=== PATIENT | male | born 1955 | race Caucasian/White ===

== ENCOUNTER 2024-04-10 09:52 | Emergency (ER) | payer MEDICARE, SELFPAY ==
[2024-04-10 10:16] VITALS: BP 98/61; PULSE 68; RESP 18; TEMP 36.7; O2SAT 97; BMI 26.9
[2024-04-10 10:28] VITALS: BP 108/60; PULSE 68; O2SAT 96
--- NOTE | 2024-04-10 10:29 | CT_ITS ---
WS: [id number] CT ABDOMEN AND PELVIS WITH CONTRAST HISTORY: hematuria TECHNIQUE: Imaging performed of the abdomen and pelvis with IV contrast. Single phase imaging of the abdomen. Coronal and sagittal reformats are submitted. All CT scans at [facility] use at [address] one of these dose optimization techniques: automated exposure control; mA and/or kV adjustment per patient size (includes targeted exams where dose is matched to clinical indication); or iterative re construction. IV CONTRAST: Omnipaque 350; 100 mL IV. Oral contrast: No DLP: 543.13 mGy.cm COMPARISON: None available. Lower thorax: Slight elevation LEFT hemidiaphragm. LEFT basilar atelectasis. Heart is normal size. No hiatal hernia. Liver/biliary system: Normal size with no intrahepatic dilatation. Gallbladder: Normal. No gallstones or wall thickening. No pericholecystic fluid. Pancreas: Normal size pancreas and pancreatic duct. No adjacent inflammation. Spleen: Normal size spleen. No mass or infarct. Adrenal glands: Normal. Right kidney: Low normal size kidney. No obstruction and no solid mass. No perinephric stranding. Left kidney: Low normal size kidney. No perinephric stranding or obstruction. No mass. Aorta: Atherosclerosis aorta with ectasia. Small amount of plaque at the origin of the celiac axis an d SMA. Component of stenosis is likely. Lymphadenopathy: None. Free fluid: None. GI tract: Normally distended stomach and small bowel. No colon obstruction. Normal appendix. Abdominal wall: Unremarkable abdominal wall. No hernia. Pelvis: Hayden catheter present in an abnormal urinary bladder. There is marked bladder wall thickenin g with mild enhancement. Bladder wall measures up to 1.3 cm. Air in the urinary bladder is probably f rom the recent catheter placement. Bones: Unremarkable. CT/CT abdomen pelvis w con* [id number] IMPRESSION: 1. Markedly abnormal urinary bladder. There is marked, near diffuse wall thick ening with mild enhancement. Wall thickening measures up to 1.3 cm. Recommend c ystoscopy. Differential includes extensive uroepithelial neoplasm or severe cys titis. 2. Hayden catheter in place. 3. No renal obstruction. 4. Atherosclerosis abdominal aorta and mesenteric arteries.
--- NOTE | 2024-04-10 10:30 | ED_ITS ---
HPI - Male Genitourinary 2 General: Chief complaint: Urogenital-Male Stated complaint: blood in urine Time Seen by Provider: 04/10/24 10:25 Source: patient Mode of arrival: ambulatory Limitations: no limitations History of Present Illness: 68-year-old male who states that he has been having hematuria since last night he states this is just a slight amount of blood today states he is passing some blood clots he had some slight lower abdominal pain rated 3 out of 10 he states he still been able to urinate. Denies any history of hematuria in the past. Denies fever Associated symptoms: Reports hematuria; Deny dysuria, nausea or vomiting Review of Systems 2 Const: Denies: fever(s), chills, body aches or change in appetite ENMT: Denies: throat pain or dental pain Card: Denies: chest pain Resp: Denies: dyspnea GI: Reports: abdominal pain; Denies: nausea, vomiting or diarrhea : Reports: hematuria; Denies: dysuria Musc: Denies: neck pain or back pain Skin/Breast: Denies: rash Neuro: Denies: headache(s) Physical Exam 2 Const: COMMON NORMALS: no acute distress, patient oriented x3 and healthy appearing HENMT: COMMON NORMALS: normocephalic and atraumatic HEAD & SCALP: n ormocephalic and atraumatic Eye: COMMON NORMALS: conjunctivae normal CONJUNCTIVA: Yes conjunctivae normal Neck/C-Spine: COMMON NORMALS: full ROM and supple Chest: COMMONS NORMALS: normal inspection of the chest Resp: COMMON NORMALS: normal respiratory effort Cardio: COMMON NORMALS: regular rate, regular rhythm and No murmurs present (Cardio) RATE: regular rate RHYTHM: regular rhythm GI: COMMON NORMALS: Normal to inspection, nondistended, normoactive bowel sounds present, Soft to palpation, non-tender and no masses PALPATION: Yes Soft to palpation Extremity: COMMON NORMALS: normal to inspection and full ROM Neuro: COMMON NORMALS: patient oriented x3, moves all extremities and no focal motor deficits Psych: COMMON NORMALS: mental status grossly normal, Normal thought process present and cooperative THOUGHT PROCESS: Normal thought process present Skin: COMMON NORMALS: no rashes or lesions noted and no wounds GENERAL SKIN EXAM: no rashes or lesions noted Course 2 Vital Signs: Vital signs: Vital Signs Temperature 98.1 F 04/10/24 10:16 Pulse Rate 64 04/10/24 13:00 Respiratory Rate 16 04/10/24 13:00 Blood Pressure 118/72 04/10/24 13:00 Pulse Oximetry 97 04/10/24 13:00 Oxygen Delivery Me thod Room Air 04/10/24 13:00 MDM - Male Medical Decision Making Patient presents here with hematuria did place a Hayden was able to flush it clear CT does show bladder irregularities we will start patient on antibiotics we will leave Hayden in place we will get him follow-up with urology as he likely needs a cystoscope I did inform him of this. He is return if worsening Medical Records I reviewed the patient's medical records. Lab Data I reviewed the patient's lab results. 04/10/24 10:42 04/10/24 10:42 Radiology Impressions Abdomen/Pelvis CT 04/10/24 10:29 IMPRESSION: 1. Markedly abnormal urinary bladder. There is marked, near diffuse wall thickening with mild enhancement. Wall thickening measures up to 1.3 cm. Recommend cystoscopy. Differential includes extensive uroepithelial neoplasm or severe cystitis. 2. Hayden catheter in place. 3. No renal obstruction. 4. Atherosclerosis abdominal aorta and mesenteric arteries. Laboratory Results WBC 8.04 10^3/uL (3.29-11.43) 04/10/24 10:42 RBC 4.91 10^6/uL (3.85-5.65) 04/10/24 10:42 Hgb 14.00 g/dL (11.27-16.99) 04/10/24 10:42 Hct 43.7 % (37-53) 04/10/24 10:42 MCV 89.0 fl (82-101) 04/10/24 10:42 MCH 28.5 pg (27-33) 04/10/24 10:42 MCHC 32.0 g/dL (30-55) 04/10/24 10:42 RDW 14.2 % (12.1-15.1) 04/10/24 10:42 Plt Count 271 10^3/cmm (157-399) 04/10/24 10:42 MPV 10.8 fL (7.4-10.4) H 04/10/24 10:42 Neut % (Auto) 46.8 % 04/10/24 10:42 Lymph % (Auto) 28.2 % 04/10/24 10:42 Caroline % (Auto) 14.9 % 04/10/24 10:42 Eos % (Auto) 9.0 % 04/10/24 10:42 Baso % (Auto) 0.9 % 04/10/24 10:42 Neut # (Auto) 3.76 10^3/uL (1.8-7.7) 04/10/24 10:42 Lymph # (Auto) 2.3 10^3/uL (0.8-4.8) 04/10/24 10:42 Caroline # (Auto) 1.2 10^3/uL (0.2-0.9) H 04/10/24 10:42 Eos # (Auto) 0.7 10^3/uL (0.0-0.8) 04/10/24 10:42 Baso # (Auto) 0.1 10^3/uL (0.0-0.1) 04/10/24 10:42 Nucleated RBC % (auto) 0 % 04/10/24 10:42 Nucleated RBCs # 0.0 /100WBC 04/10/24 10:42 PT 14.90 SECONDS (12.1-14.9) 04/10/24 10:42 INR 1.13 (0.8-1.2) 04/10/24 10:42 Sodium 138 mmol/L (136-145) 04/10/24 10:42 Potassium 4.6 mmol/L (3.5-5.1) 04/10/24 10:42 Chloride 106 mmol/L (98-107) 04/10/24 10:42 Carbon Dioxide 22 mmol/L (22-29) 04/10/24 10:42 Anion Gap 14.6 (5-19) 04/10/24 10:42 BUN 14 mg/dL (8-23) 04/10/24 10:42 Creatinine 1.4 mg/dL (0.7-1.2) H 04/10/24 10:42 GFR Calculation 50.7 mL/min (90-130) L 04/10/24 10:42 Glucose 80 mg/dL (65-115) 04/10/24 10:42 Calculated Osmolality 285 mOsm/kg (285-295) 04/10/24 10:42 Calcium 8.4 mg/dL (8.5-10.5) L 04/10/24 10:42 Total Bilirubin 0.3 mg/dL (0.15-1.2) 04/10/24 10:42 AST 19 U/L (0-40) 04/10/24 10:42 ALT 27 U/L (0-41) 04/10/24 10:42 Alkaline Phosphatase 77 U/L (40-130) 04/10/24 10:42 Total Protein 6.9 g/dL (6.6-8.7) 04/10/24 10:42 Albumin 4.2 g/dL (3.5-5.2) 04/10/24 10:42 Globulin 2.7 g/dL (1.3-4.6) 04/10/24 10:42 Urine Color Red (Yellow) A 04/10/24 10:41 Urine Appearance Cloudy (CLEAR) A 04/10/24 10:41 Urine pH 7 (5-7) 04/10/24 10:41 Ur Specific Dittmer 1.010 (1.005-1.030) 04/10/24 10:41 Urine Protein Not tested (Negative) 04/10/24 10:41 Urine Glucose (UA) Norm (Normal) 04/10/24 10:41 Urine Ketones 1+ (Negative) H 04/10/24 10:41 Urine Blood 3+ (Negative) H 04/10/24 10:41 Urine Nitrate Not tested (Negative) A 04/10/24 10:41 Urine Bilirubin Not tested (Negative) 04/10/24 10:41 Urine Urobilinogen Not tested mg/dL (Negative) A 04/10/24 10:41 Ur Leukocyte Esterase Not tested (Negative) A 04/10/24 10:41 Urine RBC Too numerous to cnt /hpf (0-2) H 04/10/24 10:41 Urine WBC None /hpf (0-5) 04/10/24 10:41 Ur Squamous Epith Cells None /hpf (0-5) 04/10/24 10:41 Amorphous Sediment Not Reportable 04/10/24 10:41 Urine Bacteria Trace /hpf (NONE) 04/10/24 10:41 Urine Mucus Trace /hpf 04/10/24 10:41 All radiology interpretation(s) finalized by discharge Discharge Plan Discharge Patient Disposition: Home Clinical Impression: Hematuria Qualifiers: Hematuria type: unspecified type Qualified Code(s): R31.9 - Hematuria, unspecified Condition: Stable Prescriptions: New cephalexin 500 mg capsule 500 mg PO TID 7 Days Qty: 21 0RF No Action clopidogrel 75 mg Tablet 75 mg PO DAILY Aspir-81 81 mg Tablet,Delayed Release (Dr/Ec) 81 mg PO DAILY metoprolol tartrate 25 mg Tablet 12.5 mg PO BID Discharge Orders: Discharge ED (Routine); Ordered 04/10/24 Ordered By: Mp Morales Discharge Diet: Advance as tolerated Discharge Activity: Resume usual activity Patient Instructions: Hematuria (ED) Coding Level of Care Code ED Architectural Sales Consultant for Viji Hernandez
[2024-04-10 10:55] LABS: Basophils # 0.1 10^3/uL (0.0-0.1); Basophils % 0.9 %; Eosinophils # 0.7 10^3/uL (0.0-0.8); Hematocrit 43.7 % (37-53); Lymphocytes # 2.3 10^3/uL (0.8-4.8); Lymphocytes % 28.2 %; Mean Corpuscular Hemoglobin 28.5 pg (27-33); Mean Platelet Volume 10.8 fL (7.4-10.4); Monocytes # 1.2 10^3/uL (0.2-0.9); Monocytes % 14.9 %; Neutrophils # 3.76 10^3/uL (1.8-7.7); Neutrophils % 46.8 %; Nucleated Red Blood Cells % 0 %; Platelet Count 271 10^3/cmm (157-399); Red Blood Count 4.91 10^6/uL (3.85-5.65); Red Cell Distribution Width 14.2 % (12.1-15.1); White Blood Count 8.04 10^3/uL (3.29-11.43)
[2024-04-10 11:08] LABS: INR 1.13 (0.8-1.2)
[2024-04-10 11:16] LABS: Alanine Aminotransferase 27 U/L (0-41); Albumin Level 4.2 g/dL (3.5-5.2); Alkaline Phosphatase 77 U/L (40-130); Anion Gap 14.6 (5-19); Aspartate Amino Transferase 19 U/L (0-40); Blood Urea Nitrogen 14 mg/dL (8-23); Calcium 8.4 mg/dL (8.5-10.5); Carbon Dioxide 22 mmol/L (22-29); Chloride 106 mmol/L (98-107); Globulin 2.7 g/dL (1.3-4.6); Glomerular Filtration Rate 50.7 mL/min (90-130); Glucose 80 mg/dL (65-115); Osmolality Calculated 285 mOsm/kg (285-295); Potassium 4.6 mmol/L (3.5-5.1); Sodium 138 mmol/L (136-145); Total Bilirubin 0.3 mg/dL (0.15-1.2); Total Protein 6.9 g/dL (6.6-8.7)
[2024-04-10 11:17] LABS: Creatinine Clr Calc Pharmacy 48.6673
[2024-04-10 11:22] LABS: Blood Urine 3+ (Negative); Glucose Urine UA Norm (Normal); Ketones Urine 1+ (Negative); Protein Urine Not Tested (Negative); Urine Appearance Cloudy (CLEAR); Urine Color Red (Yellow); pH Urine 7 (5-7)
[2024-04-10 11:25] LABS: Add Urine Microscopic? YES; Bacteria Urine TRACE /hpf; Bilirubin Urine Not Tested (Negative); Leukocyte Esterase Urine Not Tested (Negative); Mucus Urine TRACE /hpf; Nitrate Urine Not Tested (Negative); RBC Urine TOO NUMEROUS TO CNT /hpf (0-2); Urobilinogen Urine Not Tested mg/dL (Negative)
[2024-04-10 11:26] LABS: Add Urine Culture? Yes
[2024-04-10] MEDS: iohexol 350 mg/mL 500 mL Btl (per mL) IV (11:59)
[2024-04-10 12:40] VITALS: BP 110/62; PULSE 59; RESP 16; O2SAT 98
[2024-04-10 13:00] VITALS: BP 118/72; PULSE 64; RESP 16; O2SAT 97
[2024-04-10] MEDS: cefTRIAXone 1,000 mg SDV 1000 MG IVP (13:14)
[2024-04-10 13:36] VITALS: BP 116/73; PULSE 61; RESP 16; TEMP 36.7; O2SAT 98
--- NOTE | 2024-04-14 10:21 | DCPLANNER ---
faxed urology referral to [facility]
== END 2024-04-10 13:38 | disposition home or self-care (01) ==
PROVIDERS: Emergency Provider Emergency Medicine
DX: R31.9 Hematuria, unspecified (principal); Z79.02 Long term (current) use of antithrombotics/antiplatelets; Z79.82 Long term (current) use of aspirin
CPT/HCPCS: 36415; 51702; 74177; 80053; 81001; 85025; 85610; 87086; 96374; 99285; J0696; Q9967

== ENCOUNTER → 2024-06-03 07:58 | Outpatient (BNVA) | payer MEDICARE, SELFPAY | PROVIDERS: PCP Nurse Practitioner; Visit Provider Nurse Practitioner | DX: I25.10 Atherosclerotic heart disease of native coronary artery without angina pectoris (principal) | CPT/HCPCS: 80053; 80061; 85025 ==

== ENCOUNTER 2024-08-28 10:24 | Outpatient (CLI) | payer MEDICARE, SELFPAY ==
--- NOTE | 2024-08-28 11:45 | US_ITS ---
WS: [id number] RENAL ULTRASOUND HISTORY: N40.1 - Benign prostatic hyperplasia with lower urinary t... COMPARISON: None available. TECHNIQUE: 2-D and color Doppler imaging of the kidney submitted. Right kidney: 9.9 cm x 4.6 cm x 4.6 cm. Cortex: 1.0 cm Normal echogenicity with no hydronephrosis or mass. Left kidney: 12.3 cm x 5.0 cm x 5.1 cm. Cortex: 1.2 cm LEFT kidney is poorly visualized. Small extrarenal pelvis is suspected. Calyces are not dilated. No m ass identified. Aorta: Normal. Urinary Bladder: Floating debris in the urinary bladder. Mildly enlarged prostate gland. US/US renal BI* [id number] IMPRESSION: 1. Limited evaluation due to body habitus. 2. Normal size kidneys. 3. Extrarenal pelvis versus minimal LEFT renal pelvis dilatation. No calyceal dilatation or significant hydronephrosis. 4. Prostate enlargement.
== END 2024-08-28 10:25 | disposition home or self-care (01) ==
LOC: RAD 10:25
PROVIDERS: PCP Nurse Practitioner; Visit Provider Nurse Practitioner
DX: N40.1 Benign prostatic hyperplasia with lower urinary tract symptoms (principal); Q62.39 Other obstructive defects of renal pelvis and ureter
CPT/HCPCS: 76770

== ENCOUNTER → 2024-09-03 12:59 | Outpatient (BNVA) | payer MEDICARE, SELFPAY | PROVIDERS: PCP Nurse Practitioner; Visit Provider Internal Medicine Cardiovascular Disease | DX: I73.9 Peripheral vascular disease, unspecified (principal); I25.10 Atherosclerotic heart disease of native coronary artery without angina pectoris; E78.5 Hyperlipidemia, unspecified; J44.9 Chronic obstructive pulmonary disease, unspecified; F17.200 Nicotine dependence, unspecified, uncomplicated; I10 Essential (primary) hypertension | CPT/HCPCS: 99204 ==

== ENCOUNTER → 2024-11-10 08:35 | Outpatient (BNVA) | payer MEDICARE, SELFPAY | PROVIDERS: PCP Nurse Practitioner; Visit Provider Nurse Practitioner | DX: I25.10 Atherosclerotic heart disease of native coronary artery without angina pectoris (principal) | CPT/HCPCS: 80053; 80061 ==

== ENCOUNTER → 2025-03-03 09:58 | Outpatient (BNVA) | payer MEDICARE, SELFPAY | PROVIDERS: PCP Nurse Practitioner; Visit Provider Nurse Practitioner | DX: J43.9 Emphysema, unspecified (principal); I25.10 Atherosclerotic heart disease of native coronary artery without angina pectoris; I73.9 Peripheral vascular disease, unspecified; Z12.5 Encounter for screening for malignant neoplasm of prostate; E55.9 Vitamin D deficiency, unspecified | CPT/HCPCS: 80053; 80061; 82306; 82607; 83735; G0103 ==

== ENCOUNTER → 2025-05-07 10:38 | Outpatient (BNVA) | payer MEDICARE, MEDICAID, SELFPAY | PROVIDERS: PCP Nurse Practitioner; Visit Provider Nurse Practitioner | DX: J43.9 Emphysema, unspecified (principal); J98.11 Atelectasis | CPT/HCPCS: 71046; 85025; 87426 ==

== ENCOUNTER 2025-05-14 07:38 | Outpatient (CLI) | payer MEDICARE, MEDICAID, SELFPAY ==
--- NOTE | 2025-05-14 07:45 | CT_ITS ---
WS: [id number] LDCT LUNG CANCER SCREENING TECHNIQUE: Noncontrast CT of the chest with coronal and sagittal reformatted images. CLINICAL INFORMATION: F17.210 - Nicotine dependence, cigarettes, uncomplicated COMPARISON: None. DLP: 58.90 mGy.cm DIvol: Mean CTDIvol: 1.20 (mGy) All CT scans at [facility] use at least one of these dose optimization techniques: automated exposure control; mA and/or kV adjustment per patient size (includes targeted exams where dose is matched to clinical indication); or iterative reconstruction. FINDINGS: Moderate to advanced chronic emphysematous changes. Chronic elevation LEFT hemidiaphragm. Subsegmental atelectasis LEFT lower lobe. 5 mm nodule RIGHT upper lobe anteriorly. Small RIGHT perifissural nodules. Additional 6 mm nodule RIGHT upper lobe posterior medially abutting the posterior mediastinum adjacent to the esophagus Small subpleural nodule RIGHT middle lobe. Sternotomy. CABG. Aortic calcification. Coronary calcification. No mediastinal or hilar lymphadenopathy. No axillary lymphadenopathy. Normal adrenal glands. Small esophageal hiatal hernia. Fatty atrophy of the pancreas. CT/CT lung screening [id number] IMPRESSION: Recommend 6-month follow-up of the RIGHT upper lobe nodule measuring 5 mm. In a ddition, 6 mm nodule RIGHT upper lobe posterior medially just posterior to the esophagus abutting the mediastinum. No prior comparisons. LUNG-RADS: 3-Probably Benign FOLLOW UP: 6 Month LDCT
== END 2025-05-14 07:39 | disposition home or self-care (01) ==
LOC: RAD 07:39
PROVIDERS: PCP Nurse Practitioner; Visit Provider Nurse Practitioner
DX: Z12.2 Encounter for screening for malignant neoplasm of respiratory organs (principal); R91.8 Other nonspecific abnormal finding of lung field; F17.210 Nicotine dependence, cigarettes, uncomplicated
CPT/HCPCS: 71271

== ENCOUNTER 2025-05-26 13:00 | Outpatient (CLI) | payer MEDICARE, MEDICAID, SELFPAY | END 2025-05-26 13:01 | disposition home or self-care (01) | PROVIDERS: PCP Nurse Practitioner; Visit Provider Nurse Practitioner | DX: R06.00 Dyspnea, unspecified (principal) | CPT/HCPCS: 80053; 85025; 85379 ==

== ENCOUNTER → 2025-06-17 09:44 | Outpatient (BNVA) | payer MEDICARE, MEDICAID, SELFPAY | PROVIDERS: PCP Nurse Practitioner; Visit Provider Nurse Practitioner | DX: I73.9 Peripheral vascular disease, unspecified (principal); J43.9 Emphysema, unspecified; K59.00 Constipation, unspecified; M16.0 Bilateral primary osteoarthritis of hip; Z98.890 Other specified postprocedural states | CPT/HCPCS: 71046; 74018 ==

== ENCOUNTER 2025-07-22 09:07 | Outpatient (CLI) | payer MEDICARE, MEDICAID, SELFPAY ==
--- NOTE | 2025-07-22 14:15 | USCV_ITS ---
Terrell Corcoran Age: 69 Gender: M : 1955 Exam Date: 07/22/2025 09:47 Ordering Phys: Ciara Murphy Technologist: Exam [place] [facility] [place]: cad BP: 120 / 70 HR: 63 Rhythm: Sinus Technical Quality: Adequate MEASUREMENTS (Male / Female) Normal Values 2D ECHO LV Diastolic Diameter PLAX 3.3 cm 4.2 - 5.9 / 3.9 - 5.3 cm IVS Diastolic Thickness 1.1 cm 0.6 - 1.0 / 0.6 - 0.9 cm IVS Systolic Thickness 1.3 cm LVPW Diastolic Thickness 1.4 cm 0.6 - 1.0 / 0.6 - 0.9 cm LVPW Systolic Thickness 1.4 cm LVOT Diameter 2.0 cm LV Ejection Fraction 2D Teich 60.2 % LV Ejection Fraction MOD 4C 57.5 % LV Ejection Fraction MOD 2C 63.0 % LV Ejection Fraction 2C AL 63.1 % LA Diameter 3.3 cm RA Systolic Volume 4C AL 30.1 ml RA Systolic Volume 4C MOD 30.7 ml Aorta at Sinotubular Diameter 3.4 cm IVC Diameter 1.6 cm M-MODE LA Ao Ratio MM 1.3 AV Cusp Separation MM 2.4 cm DOPPLER AV Peak Velocity 112.0 cm/s LVOT Peak Velocity 79.0 cm/s AV Area Cont Eq vti 2.7 cm squared AV Area Cont Eq pk 2.3 cm squared MV Peak Velocity 79.0 cm/s MV Area PHT 3.3 cm squared Mitral E to A Ratio 1.1 TR Peak Velocity 260.0 cm/s TR Peak Gradient 27.0 mmHg PV Peak Velocity 82.0 cm/s FINDINGS Left Ventricle Normal left ventricular size, systolic function and wall thickness, with no regional wall motion abnormalities. Left ventricular ejection fraction is estimated at 60 %. Grade I/IV diastolic dysfunction (abnormal relaxation filling pattern), normal to mildly elevated filling pressures. Right Ventricle Normal right ventricular size and systolic function. Right Atrium Normal right atrial size. Left Atrium Normal left atrial size. IA Septum Normal appearance of the interatrial septum. Mitral Valve Mildly thickened mitral valve. No mitral valve stenosis. Trace mitral valve regurgitation. Aortic Valve Moderate aortic valve calcification. No aortic valve stenosis. No aortic valve regurgitation. Tricuspid Valve Normal tricuspid valve structure. No tricuspid valve stenosis or regurgitation. Normal pulmonary pressure. Pulmonic Valve Normal pulmonic valve structure. No pulmonic valve stenosis or regurgitation. Pericardium No pericardial effusion. Aorta Normal diameter of the aortic root and ascending thoracic aorta. IVC Normal IVC diameter. CONCLUSIONS Normal left ventricular size, systolic function and wall thickness, with no regional wall motion abnormalities. Left ventricular ejection fraction is estimated at 60 %. Grade I/IV diastolic dysfunction (abnormal relaxation filling pattern), normal to mildly elevated filling pressures. There is no pericardial effusion. No significant valvular abnormalities. Right atrial pressure is around 5 mm of mercury. Padmini Huerta MD (Electronically Signed) Final Date: 22 July 2025 12:23 S
== END 2025-07-22 09:08 | disposition home or self-care (01) ==
LOC: RAD 09:08
PROVIDERS: PCP Nurse Practitioner; Visit Provider Nurse Practitioner
DX: I25.10 Atherosclerotic heart disease of native coronary artery without angina pectoris (principal); I73.9 Peripheral vascular disease, unspecified; R55 Syncope and collapse; R05.4 Cough syncope; I51.89 Other ill-defined heart diseases
CPT/HCPCS: 93306